=== PATIENT | female | born 1990 | race Caucasian/White ===

== ENCOUNTER 2020-03-15 15:52 | Emergency (ER) | payer OTHER ==
[~2020-03-15] VITALS: Ht 157.5 cm; Wt 82.0 kg
[~2020-03-15 15:52] MED LIST: ALBU2.5V8; FLUT1DIS
[2020-03-15] MEDS ORDERED: KETOROLAC 30 MG/ML VIAL. IV ONE (16:15)
[2020-03-15] MEDS ORDERED: IV NORMAL SALINE 1,000ML 1,000 ML IV ONE ×2 (16:15→18:00)
[2020-03-15] MEDS ORDERED: ONDANSETRON PF 4 MG/2 ML VIAL. IV ONE (16:15)
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
--- NOTE | 2020-03-15 17:20 | RAD ---
Examination: CT ABDOMEN PELVIS WO CONTRAST History: Reason: flank pain / Spl. Instructions: / History: Comparison/Correlation: 02/08/2011 CT abdomen and pelvis with contrast Findings: Axial images of the abdomen and pelvis were obtained without contrast. Sagittal and coronal reformatted images were provided. Small hiatal hernia is present. The visualized lung bases are clear. Liver, spleen, pancreas, and adrenal glands are normal. Gallbladder fossa is unremarkable. There are no radiopaque collecting system calculi. No hydronephrosis or hydroureter. No enlarged abdominal or pelvic lymph nodes. Appendix is normal. No bowel obstruction. Borderline distended left mid abdominal small bowel loops are present. No suspicious transition. No extraluminal gas. No ascites or pelvic free fluid. Intrauterine device is in place. Adnexal follicles and right adnexal cyst measuring 2.7 cm are physiologic in appearance. Bony structures are unremarkable. Impression: No radiopaque collecting system calculi. Bilateral adnexal follicles and/or adnexal cysts are physiologic in appearance. PQRS Compliance Statement: One or more of the following individualized dose reduction techniques were utilized for this examination: 1. Automated exposure control 2. Adjustment of the mA and/or kV according to patient size 3. Use of iterative reconstruction technique Electronically signed by: Irineo Rivas MD (03/15/2020 5:17 PM) [id number]
[2020-03-15 18:04] LABS: CALCIUM 8.2 mg/dL (8.5-10.1); CREATININE 0.9 mg/dL (0.6-1.0); GFR 75.1; POTASSIUM 3.7 mmol/L (3.5-5.1)
[2020-03-15 18:10] LABS: ALBUMIN 3.3 g/dL (3.4-5.0); ALBUMIN/GLOBULIN RATIO 1.1 (1.0-1.7); TOTAL BILIRUBIN 0.4 mg/dL (0.2-1.0); TOTAL PROTEIN 6.3 g/dL (6.4-8.2)
[2020-03-15 18:12] LABS: BASO # 0.1 x10^3/uL (0.0-0.2); BASO % 1 % (0-3); EOS # 0.1 x10^3/uL (0.0-0.7); EOS % 1 % (0-3); HEMATOCRIT 47.9 % (36.0-47.0); HEMOGLOBIN 16.4 g/dL (12.0-15.5); LYMPH # 1.4 x10^3/uL (1.0-4.8); LYMPH % 12 % (24-48); MEAN CORPUSCULAR HEMOGLOBIN 32 pg (25-35); MEAN CORPUSCULAR HGB CONC 34 g/dL (31-37); MEAN CORPUSCULAR VOLUME 93 fL (79-100); MONO # 0.5 x10^3/uL (0.0-1.1); MONO % 4 % (0-9); NEUT # 9.9 x10^3uL (1.8-7.7); NEUT % 83 % (31-73); PLATELET COUNT 307 x10^3/uL (140-400); RED BLOOD COUNT 5.15 x10^6/uL (3.50-5.40); RED CELL DISTRIBUTION WIDTH 12.8 % (11.5-14.5)
[2020-03-15 18:35] VITALS: BP 99/63
[2020-03-15] MEDS ORDERED: ONDA8TAB9 PO (19:27)
[2020-03-15] MEDS ORDERED: ONDANSETRON PF 4 MG/2 ML VIAL. IVP ONE ×2 (19:30→21:45)
[2020-03-15] MEDS ORDERED: IV RINGERS SOLUTION,LACTATED 1,000 ML IV ONE (19:30)
[2020-03-15 21:01] LABS: AMORPHOUS SEDIMENT,UR PRESENT /HPF; BACTERIA,URINE MOD /HPF (0-FEW); BILIRUBIN,URINE NEG (NEG); CLARITY,URINE CLOUDY; COLOR,URINE YELLOW; GLUCOSE,URINE NEG (NEG); NITRITE,URINE NEG (NEG); SQUAMOUS EPITHELIAL CELL,UR FEW /LPF; UROBILINOGEN,URINE 0.2 mg/dL (0.2 mg/dL)
[2020-03-15] MEDS ORDERED: MORPHINE SULFATE 10 MG/ML SYRINGE. SQ ONE (21:45)
== END 2020-03-15 21:55 | disposition home or self-care (01) ==
LOC: ER 15:52
DX: K52.9 Noninfective gastroenteritis and colitis, unspecified (principal); E86.0 Dehydration; F17.210 Nicotine dependence, cigarettes, uncomplicated; Z88.1 Allergy status to other antibiotic agents; Z91.018 Allergy to other foods
CPT/HCPCS: 36415; 74176; 80053; 81001; 81025; 83690; 85025; 87086; 96361; 96372; 96374; 96375; 96376; 99284; J1885; J2270; J2405; J3010; J7120; J7030

== ENCOUNTER 2020-06-23 00:01 | Emergency (ER) | payer OTHER ==
[~2020-06-23] VITALS: Ht 162.6 cm; Wt 82.4 kg
[~2020-06-23 00:01] MED LIST changes: +ONDA8TAB9 PO
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
[2020-06-23] MEDS ORDERED: IV RINGERS SOLUTION,LACTATED 1,000 ML IV SCH (00:15)
[2020-06-23] MEDS ORDERED: ONDANSETRON PF 4 MG/2 ML VIAL. IVP ONE (00:15)
[2020-06-23] MEDS ORDERED: FAMOTIDINE 20 MG/2 ML VIAL IVP ONE (00:15)
[2020-06-23 00:33] LABS: BASO # 0.1 x10^3/uL (0.0-0.2); BASO % 1 % (0-3); EOS # 0.4 x10^3/uL (0.0-0.7); EOS % 3 % (0-3); HEMATOCRIT 47.1 % (36.0-47.0); HEMOGLOBIN 15.9 g/dL (12.0-15.5); LYMPH # 1.7 x10^3/uL (1.0-4.8); LYMPH % 15 % (24-48); MEAN CORPUSCULAR HEMOGLOBIN 32 pg (25-35); MEAN CORPUSCULAR HGB CONC 34 g/dL (31-37); MEAN CORPUSCULAR VOLUME 94 fL (79-100); MONO # 0.5 x10^3/uL (0.0-1.1); MONO % 4 % (0-9); NEUT # 8.5 x10^3uL (1.8-7.7); NEUT % 77 % (31-73); PLATELET COUNT 294 x10^3/uL (140-400); RED BLOOD COUNT 5.04 x10^6/uL (3.50-5.40); RED CELL DISTRIBUTION WIDTH 12.7 % (11.5-14.5); WHITE BLOOD COUNT 11.1 x10^3/uL (4.0-11.0)
[2020-06-23 00:50] LABS: CREATININE 1.1 mg/dL (0.6-1.0); GFR 59.6; POTASSIUM 3.8 mmol/L (3.5-5.1)
[2020-06-23 00:55] LABS: ALBUMIN 4.1 g/dL (3.4-5.0); DIRECT BILIRUBIN 0.1 mg/dL (0.0-0.2); TOTAL BILIRUBIN 0.3 mg/dL (0.2-1.0); TOTAL PROTEIN 7.7 g/dL (6.4-8.2)
[2020-06-23] MEDS ORDERED: IV RINGERS SOLUTION,LACTATED 1,000 ML IV ONE (01:15)
[2020-06-23 02:25] LABS: BARBITURATES NEG (NEG); BENZODIAZEPINES NEG (NEG); CANNABINOIDS NEG (NEG); COCAINE NEG (NEG); METHADONE NEG (NEG); OPIATES NEG (NEG); PHENCYCLIDINE NEG (NEG)
[2020-06-23 02:28] LABS: BACTERIA,URINE MANY /HPF (0-FEW); BILIRUBIN,URINE NEG (NEG); CLARITY,URINE HAZY; COLOR,URINE YELLOW; GLUCOSE,URINE NEG (NEG); NITRITE,URINE POS (NEG); RBC,URINE 0 /HPF (0-2); SQUAMOUS EPITHELIAL CELL,UR FEW /LPF; U PREG PATIENT NEGATIVE (NEG)
[2020-06-23 02:29] LABS: AMPHETAMINE/METHAMPHETAMINE POS (NEG)
[2020-06-23] MEDS ORDERED: KETOROLAC 30 MG/ML VIAL. IVP ONE (03:30)
[2020-06-23] MEDS ORDERED: MORPHINE SULFATE 10 MG/ML SYRINGE. SQ ONE (03:30)
[2020-06-23] MEDS ORDERED: cefTRIAXone SODIUM 1 GM VIAL ONE (03:36)
[2020-06-23] MEDS ORDERED: IV NORMAL SALINE 50ML 50 ML ONE (03:36)
[2020-06-23] MEDS ORDERED: CONTRAST GIVEN. MC PRN (03:45)
[2020-06-23] MEDS ORDERED: IOHEXOL 300 MG/ML 75 ML VIAL. IV ONE (03:45)
[2020-06-23] MEDS ORDERED: IOHEXOL 240 MG/ML 50ML VIAL. PO ONE (03:45)
--- NOTE | 2020-06-23 05:36 | RAD ---
INDICATION: Reason: pain, N/V/D, X 1 DAY, OMNI 240, 30ml OMNI 300, 60ml / Spl. Instructions: / History: COMPARISON: March 2020 TECHNIQUE: Axial CT images obtained through the abdomen and pelvis with contrast. One or more of the following individualized dose reduction techniques were utilized for this examination: 1. Automated exposure control; 2. Adjustment of the mA and/or kV according to patient size; 3. Use of iterative reconstruction technique. FINDINGS: Abdominal aorta is not aneurysmal. Periportal edema is seen. Gallbladder is contracted. No peripancreatic fluid collection. Spleen unremarkable. No hydronephrosis. Urinary bladder is partially distended. Uterus is visualized. Prominent vessels in the right adnexa. Subcentimeter low-density lesion suspected at right kidney. Too small to characterize but typically benign in a patient of this age. Small free fluid in the pelvis. Moderate stool throughout the colon. The appendix does not appear dilated. No dilated loops of bowel to suggest obstruction. IMPRESSION: * No evidence of hydronephrosis. * No evidence of small bowel obstruction. The appendix does not appear significantly dilated at this time. * There are some mild periportal edema within the liver. Can be related to the patient's hydration status but would correlate with symptoms in the region given that hepatic or bile duct inflammation are also within the differential. Electronically signed by: Jordy Navarro MD (06/23/2020 5:33 AM) [id number]
[2020-06-23] MEDS ORDERED: CEPH-264 PO (05:54)
[2020-06-23] MEDS ORDERED: FAMO-63 PO (05:54)
[2020-06-23] MEDS ORDERED: ONDA8TAB9 PO (05:54)
[2020-06-23 06:00] VITALS: BP 130/72
[2020-06-23] MEDS ORDERED: MAGNESIUM HYDROXIDE 2,400 MG/30 ML ORAL.SUSP. PO ONE (06:00)
[2020-06-23] MEDS ORDERED: MAGNESIUM HYDROXIDE 2,400 MG/30 ML ORAL.SUSP. ONE (06:05)
--- NOTE | 2020-06-23 06:52 | EKG ---
[address] [address] Test Date: 2020-06-23 Test Time: 01:23:54 Pat Name: TITO POLLOCK Department: Room: Gender: F Wagon Driver: : 1990 Requested By: SHAUNA CARSON Order Number: [id number] Reading MD: Measurements Intervals [place] Rate: 53 P: 0 ID: [id number] QRS: 44 QRSD: 86 T: 46 QT: 444 QTc: 419 Interpretive Statements SINUS RHYTHM NORMAL ECG RI6.02 No previous ECG available for comparison
--- NOTE | 2020-06-23 07:32 | RAD ---
INDICATION: Reason: pain, N/V/D, X 1 DAY / Spl. Instructions: / History: COMPARISON: March 15, 2020 IMPRESSION: 3 views of the chest and abdomen. Mild interstitial prominence within the lungs. Causes such as mild interstitial infiltrate or bronchitis are not excluded. Could also be seen with mild pulmonary vascular congestion but would be uncommon in a patient of this age unless they have a history of cardiovascular disease. Cardiac silhouette is unremarkable. Air scattered throughout the large and small bowel in a nonspecific but not grossly obstructive pattern. Moderate stool in the colon. Electronically signed by: Jordy Navarro MD (06/23/2020 7:29 AM) [id number]
== END 2020-06-23 06:15 | disposition home or self-care (01) ==
LOC: ER 00:01
DX: N39.0 Urinary tract infection, site not specified (principal); R11.2 Nausea with vomiting, unspecified; E86.0 Dehydration; D72.829 Elevated white blood cell count, unspecified; R79.89 Other specified abnormal findings of blood chemistry; F17.210 Nicotine dependence, cigarettes, uncomplicated; F15.10 Other stimulant abuse, uncomplicated; F12.10 Cannabis abuse, uncomplicated; Z88.1 Allergy status to other antibiotic agents; Z91.018 Allergy to other foods
CPT/HCPCS: 36415; 74022; 74177; 80048; 80076; 80307; 81001; 81025; 82150; 82550; 83690; 84484; 85025; 85610; 85730; 87086; 93005; 96361; 96365; 96367; 96375; 99285; J0696; J1885; J2405; J3490; J7120; Q9966; Q9967; 87077; 87186

== ENCOUNTER 2020-07-16 17:12 | Emergency (ER) | payer OTHER ==
[~2020-07-16] VITALS: Ht 162.6 cm; Wt 79.6 kg
[~2020-07-16 17:12] MED LIST changes: +CEPH-264 PO; +FAMO-63 PO
[2020-07-16 17:48] VITALS: BP 99/63
[2020-07-16] MEDS ORDERED: ORPHENADRINE CITRATE 60 MG/2 ML VIAL. IM ONE (18:00)
[2020-07-16] MEDS ORDERED: KETOROLAC 30 MG/ML VIAL. IM ONE (18:00)
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
[2020-07-16] MEDS ORDERED: CYCL-331 PO (19:41)
[2020-07-16] MEDS ORDERED: NAPR-514 PO (19:41)
== END 2020-07-16 20:02 | disposition home or self-care (01) ==
LOC: ER 17:12
DX: S06.9X9A Unspecified intracranial injury with loss of consciousness of unspecified duration, initial encounter (principal); M25.511 Pain in right shoulder; M25.512 Pain in left shoulder; Z87.440 Personal history of urinary (tract) infections; F17.210 Nicotine dependence, cigarettes, uncomplicated; Z88.1 Allergy status to other antibiotic agents; Z88.8 Allergy status to other drugs, medicaments and biological substances; V43.52XA Car driver injured in collision with other type car in traffic accident, initial encounter; Y93.I9 Activity, other involving external motion; Y92.89 Other specified places as the place of occurrence of the external cause; Y99.8 Other external cause status
CPT/HCPCS: 70450; 73030; 81025; 96372; 99284; J1885; J2360

== ENCOUNTER 2021-10-14 06:01 | Emergency (ER) | payer OTHER ==
[~2021-10-14] VITALS: Ht 162.6 cm; Wt 79.6 kg
[~2021-10-14 06:01] MED LIST changes: +CYCL10TA19 PO; +NAPR-514 PO
[2021-10-14] MEDS ORDERED: IV NORMAL SALINE 1,000ML 1,000 ML IV ONE (06:30)
[2021-10-14] MEDS ORDERED: ACETAMINOPHEN 500 MG TABLET PO ONE (06:30)
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
[2021-10-14 07:17] LABS: BASO # 0.1 x10^3/uL (0.0-0.2); BASO % 1 % (0-3); EOS # 0.1 x10^3/uL (0.0-0.7); EOS % 1 % (0-3); HEMATOCRIT 32.3 % (36.0-47.0); HEMOGLOBIN 10.4 g/dL (12.0-15.5); LYMPH % 8 % (24-48); MEAN CORPUSCULAR HEMOGLOBIN 28 pg (25-35); MEAN CORPUSCULAR HGB CONC 32 g/dL (31-37); MEAN CORPUSCULAR VOLUME 87 fL (79-100); MONO # 0.9 x10^3/uL (0.0-1.1); MONO % 8 % (0-9); NEUT # 9.7 x10^3uL (1.8-7.7); NEUT % 82 % (31-73); PLATELET COUNT 279 x10^3/uL (140-400); RED BLOOD COUNT 3.71 x10^6/uL (3.50-5.40); RED CELL DISTRIBUTION WIDTH 14.5 % (11.5-14.5); WHITE BLOOD COUNT 11.7 x10^3/uL (4.0-11.0)
[2021-10-14 07:26] LABS: CALCIUM 8.1 mg/dL (8.5-10.1); CREATININE 0.7 mg/dL (0.6-1.0); GFR 99.6
[2021-10-14] MEDS ORDERED: IOHEXOL 300 MG/ML 75 ML VIAL. IV ONE (07:30)
[2021-10-14 07:31] LABS: ALBUMIN 2.1 g/dL (3.4-5.0); ALBUMIN/GLOBULIN RATIO 0.6 (1.0-1.7); TOTAL BILIRUBIN 0.2 mg/dL (0.2-1.0); TOTAL PROTEIN 5.8 g/dL (6.4-8.2)
[2021-10-14 07:33] LABS: INFLUENZA A PATIENT NEGATIVE (NEGATIVE); INFLUENZA B PATIENT NEGATIVE (NEGATIVE)
[2021-10-14 07:58] VITALS: BP 127/70
--- NOTE | 2021-10-14 08:08 | RAD ---
EXAMINATION: Chest radiograph. VIEWS: Single AP view of the chest COMPARISON: None INDICATION:30 years, Female, fever. FINDINGS: Normal cardiomediastinal silhouette. Increased interstitial reticulations. No focal consolidation. No pleural effusion or pneumothorax. No acute osseous process. IMPRESSION: Increased interstitial opacities suspicious for atypical pneumonia. No confluent infiltrates. Electronically signed by: Bradley Mlelo DO (10/14/2021 8:05 AM) [facility]
[2021-10-14 08:19] LABS: BACTERIA,URINE 0 /HPF (0-FEW); BILIRUBIN,URINE NEG (NEG); CLARITY,URINE HAZY; COLOR,URINE STRAW; GLUCOSE,URINE NEG (NEG); NITRITE,URINE NEG (NEG); RBC,URINE 20-40 /HPF (0-2); SQUAMOUS EPITHELIAL CELL,UR MANY /LPF; UROBILINOGEN,URINE 0.2 mg/dL (0.2 mg/dL)
== END 2021-10-14 08:45 | disposition home or self-care (01) ==
LOC: ER 06:01
DX: U07.1 COVID-19 (principal); F17.210 Nicotine dependence, cigarettes, uncomplicated; Z87.440 Personal history of urinary (tract) infections; Z88.1 Allergy status to other antibiotic agents; Z91.018 Allergy to other foods
CPT/HCPCS: 36415; 71045; 80053; 81001; 85025; 87040; 87086; 87428; 96360; 99284; J7030